=== PATIENT | female | born 1985 | race Hispanic/Latino ===

== ENCOUNTER 2016-06-10 22:46 | Emergency (ER) | payer MEDICAID, OTHER ==
[2016-06-10] MEDS ORDERED: Adacel (T-DAP) 0.5 ML VIAL ONE (23:08)
--- NOTE | 2016-06-10 23:25 | ERRECORD ---
[facility] EMERGENCY RECORD HPI LACERATION (23:14 JLOY) CHIEF COMPLAINT: Patient presents for evaluation of laceration to finger, on the right, 0-1.5cm in length, through dermis, No foreign body, Not grossly contaminated, Pt accidently sliced the tip of her right middle digit with a new knife as she took it out of the package. Shallow but bled heavily at first. HISTORIAN: History provided by patient. MECHANISM OF INJURY: Known mechanism, Mechanism of injury: Cut or punctured by, knife. LOCATION: Symptoms are localized. QUALITY: Laceration quality straight. TIME COURSE: Sudden onset of symptoms, There has been no change in the patient's symptoms over time. ASSOCIATED WITH: Associated with bleeding, controlled, No associated numbness, No associated significant tissue destruction, No associated tingling. EXACERBATED BY: Patient's condition exacerbated by nothing. RELIEVED BY: Patient's condition relieved by nothing. TETANUS: Tetanus status not up to date, tetanus immunization ordered. ROS (23:15 JLOY) MUSCULOSKELETAL: Historian denies deformity, denies injury. SKIN: laceration. NEUROLOGIC: Historian denies paralysis, denies paresthesias, denies sensory changes. PAST MEDICAL HISTORY MEDICAL HISTORY: No past medical history, Flu vaccine up to date, Tetanus not up to date, Pneumococcal vaccine not up to date. (22:59 KASA) No past medical history, Flu vaccine up to date, Tetanus immunization up to date, Date of immunization: 06/10/2016, Pneumococcal vaccine not up to date. (23:15 KASA) FEMALE SURGICAL HISTORY: Surgical history of hernia repair. (22:59 KASA) SOCIAL HISTORY: Lives at home, with family, Patient denies alcohol use, Patient denies drug use, Patient has no smoking history. (22:59 KASA) NOTES: Nursing records reviewed, Agree with nursing records. (23:16 JLOY) KNOWN ALLERGIES No Known Drug Allergies CURRENT MEDICATIONS (22:56 KASA) None VITAL SIGNS (22:55 KASA) VITAL SIGNS: BP: 139/69, Pulse: 72, Resp: 18, Temp: 98.1 (Oral), Pain: 5 (Constant), O2 sat: 99 on Room Air, Time: 06/10/2016 22:55. &a-1R&a+25V*p+0X*[id number]*c202B*c15G*c2P*p-0X&a-25V&a+1R Name: Noreen Vizcaino : 1985 F30 MedRec: [id number] AcctNum: [id number] Prepared: FriJun 10, 2016 23:35 by Interface Page 1 of 2 pMD [facility] EMERGENCY RECORD PHYSICAL EXAM (23:15 JL) CONSTITUTIONAL: Vital signs reviewed, Patient appears non toxic, Patient alert and oriented to person, place and time. UPPER EXTREMITY: Upper extremity exam included findings of inspection abnormal, laceration(s) present, As per hpi, 1cm lac, just through the dermis, minimal gaping. No active bleeding currently. NEURO: Kailee coma scale 15, Neuro exam findings include patient oriented to person, place and time, Speech normal. SKIN: Skin exam included findings of skin warm, dry, and normal in color. PSYCHIATRIC: Normal affect. MEDICATION ADMINISTRATION SUMMARY Drug Name: Adacel(Tdap Adolesn/Adult)(PF), Dose Ordered: 0.5 mL, Route: Intramuscular, Status: Given, Time: 23:14 06/10/2016, Detailed record available in Medication Service section. PROBLEM LIST No recorded problems DIAGNOSIS (23:13 ANEUYD) FINAL: PRIMARY: RIGHT middle finger laceration without nail involvement, no foreign body. PRESCRIPTION No recorded prescriptions DISPOSITION PATIENT: Disposition Type: Discharge, Disposition: *Discharge Home. (23:13 ANEUDY) Patient left the department. (23:31 LUCAS) Noriega: ANEUDY=MD Jason, Gurdeep ZAVALA=CANDIDA Martínez, Nathalie &a-1R&a+25V*p+0X*m3439P*c202B*c15G*c2P*p-0X&a-25V&a+1R Name: Noreen Vizcaino : 1985 F30 MedRec: [id number] AcctNum: [id number] Prepared: FriJun 10, 2016 23:35 by Interface Page 2 of 2 pMD MTDD
--- NOTE | 2016-06-10 23:31 | PICIS ---
[facility] EMERGENCY RECORD TRIAGE (22:56 KASA) TRIAGE NOTES: Cut 3rd finger on right hand with knife. (22:56 KASA) PATIENT: AGE: 30, GENDER: female, : Fri1985, TIME OF GREET: FriJun 10, 2016 22:47, PREFERRED LANGUAGE: Liberian, ETHNICITY: or , ECODE BILLING MAP: [facility] ER, SSN: [id number], Zip Code: [address], KG WEIGHT: 74.84, PHONE: , , , PERSON ID: [id number], PCP: Rd SCHMITZ JAIME. (22:56 KASA) (22:57) NAME: Noreen Vizcaino. (22:59 KASA) NAME: Noreen Vizcaino. (22:59 KASA) COMPLAINT: RT HAND,MIDDLE FINGER,CUT,USING NEW KNIFE. (22:56 KASA) ADMISSION: URGENCY: 4 Non Urgent, ADMISSION SOURCE: Home, TRANSPORT: CAR, BED: ER -03. (22:56 KASA) ASSESSMENT: Assessment: laceration to tip of finger, Symptoms began 06/10/2016. (22:59 KASA) PAIN: Patient complains of pain described as, throbbing, on a scale 0-10 patient rates pain as 5, Location finger, No aggravating factors, Relieving factors present, Relieving factors include Pressure eases the pain but does not completely relieve the pain. (22:59 KASA) SIRS SCORING: Heart Rate 55-109 (0), Temp range 96.8-101.1 (0), respiratory rate 12-24 (0), Mental Status altered: no (0). (22:59 KASA) TRIAGE SCREENING: Patient denies suicidal ideation, Patient denies presence of domestic violence. (22:59 KASA) PROVIDERS: TRIAGE NURSE: Nathalie Martínez RN. (22:56 KASA) VITAL SIGNS: BP 139/69, Pulse 72, Resp 18, Temp 98.1, (Oral), Pain 5, (Constant), O2 Sat 99, on Room Air, Time 06/10/2016 22:55. (22:55 KASA) PREVIOUS VISIT ALLERGIES: No Known Drug Allergies. (22:56 KASA) No Known Drug Allergies. (22:59 KASA) KNOWN ALLERGIES No Known Drug Allergies CURRENT MEDICATIONS (22:56 KASA) None VITAL SIGNS (22:55 KASA) VITAL SIGNS: BP: 139/69, Pulse: 72, Resp: 18, Temp: 98.1 (Oral), Pain: 5 (Constant), O2 sat: 99 on Room Air, Time: 06/10/2016 22:55. NURSING ASSESSMENT: EXTREMITY UPPER (23:02 KASA) CONSTITUTIONAL: Patient arrives ambulatory, Gait steady, History obtained from patient, Patient appears, uncomfortable, Patient cooperative, Patient alert, Oriented to person, place and &a-1R&a+25V*p+0X*c2255G*c202B*c15G*c2P*p-0X&a-25V&a+1R Name: Noreen Vizcaino : 1985 F30 MedRec: [id number] AcctNum: [id number] Prepared: FriJun 10, 2016 23:41 by Interface Page 1 of 5 pMD [facility] EMERGENCY RECORD time, Skin warm, Skin dry, Skin normal in color, Mucous membranes pink, Mucous membranes moist, Patient complains of Laceration to tip of right 3rd finger, Cut 3rd finger on right hand with knife. LEFT UPPER EXTREMITY: Left upper extremity assessment findings include capillary refill less than 2 seconds, Skin color normal to hand, Skin temperature to hand warm, Distal sensation intact. RIGHT UPPER EXTREMITY: Right upper extremity assessment findings include capillary refill less than 2 seconds, Skin color normal to hand, Skin temperature to hand warm, Distal sensation intact, Inspection findings include laceration, to tip of 3rd finger, length (cm) 2.3, bleeding controlled. SAFETY: Side rails up, Cart/Stretcher in lowest position, Family at bedside, Call light within reach, Hospital ID band on. NURSING PROCEDURE: DISCHARGE NOTE (23:24 KASA) DISCHARGE: Patient discharged to home, ambulating without assistance, family driving, accompanied by //partner, Summary of Care printed/ provided, Discharge instructions given to patient, Simple or moderate discharge teaching performed, . Educated and provided handout regarding diagnosis of: Finger laceration Follow up with PCP in 7-10 days., Above person(s) verbalized understanding of discharge instructions and follow-up care, Patient treated and evaluated by physician, Notes: Patient holding for follow up after Tetanus vaccination. BELONGINGS: Belongings and valuables with patient upon arrival to the Emergency Department include:, Belongings and valuables with patient at time of discharge include:, Belongings remain with patient, Valuables remain with patient. SAFETY: Side rails up, Cart/Stretcher in lowest position, Family at bedside, Call light within reach, Hospital ID band on. NURSING PROCEDURE: NURSE NOTES (23:04 KASA) NURSES NOTES: Patient examined by physician. NURSING PROCEDURE: WOUND CARE (23:05 KASA) PATIENT IDENTIFIER: Patient actively involved in identification process, Patient's identity verified by patient stating name, Patient's identity verified by patient stating date. WOUND CARE: Wound care indicated for preparing wound for repair, Wound care indicated to promote healing, Wound irrigated with normal saline, (mL) 30, by ERMD, Wound repaired with skin adhesive, by ERMD, using 2 tubes of skin adhesive, Tetanus status unknown, Notes: Tetanus updated with today's visit. SAFETY: Side rails up, Cart/Stretcher in lowest position, Family at bedside, Call light within reach, Hospital ID band on. MEDICATION ADMINISTRATION SUMMARY &a-1R&a+25V*p+0X*j6576F*c202B*c15G*c2P*p-0X&a-25V&a+1R Name: Noreen Vizcaino : 1985 F30 MedRec: [id number] AcctNum: [id number] Prepared: FriJun 10, 2016 23:41 by Interface Page 2 of 5 pMD [facility] EMERGENCY RECORD Drug Name: Adacel(Tdap Adolesn/Adult)(PF), Dose Ordered: 0.5 mL, Route: Intramuscular, Status: Given, Time: 23:14 06/10/2016, Detailed record available in Medication Service section. MEDICATION SERVICE Adacel(Tdap Adolesn/Adult)(PF): Order: Adacel(Tdap Adolesn/Adult)(PF) (diphth,pertuss(acell),tet vac/preservative free) - Dose: 0.5 mL : Intramuscular Ordered by: Gurdeep Goemz MD Entered by: Gurdeep Gomez MD FriJun 10, 2016 23:12 , Acknowledged by: Nathalie Martínez RN FriJun 10, 2016 23:15 Documented as given by: Nathalie Martínez RN FriJun 10, 2016 23:14 Patient, Medication, Dose, Route and Time verified prior to administration. IM immunization, Amount given: 0.5 ml, Medication administered to left deltoid, Vaccination information sheet given to patient, date of publication: 07/19/2014, name of publication: TDap Vaccine, bi tri operator: [employer], lot number: [id number], expiration: 04/18/2018, Correct patient, time, route, dose and medication confirmed prior to administration, Patient advised of actions and side-effects prior to administration, Allergies confirmed and medications reviewed prior to administration, Patient in position of comfort, Side rails up, Cart in lowest position, Family at bedside. : Follow Up : No signs or symptoms of allergic reaction noted, Site inspection shows, No swelling at administration site, No drainage at administration site, No bleeding at site, No bruising noted at site, Advised not to ambulate without assistance, Patient in position of comfort, Side rails up, Cart in lowest position, Family at bedside. (23:30 KASA) HPI LACERATION (23:14 ANEUDY) CHIEF COMPLAINT: Patient presents for evaluation of laceration to finger, on the right, 0-1.5cm in length, through dermis, No foreign body, Not grossly contaminated, Pt accidently sliced the tip of her right middle digit with a new knife as she took it out of the package. Shallow but bled heavily at first. HISTORIAN: History provided by patient. MECHANISM OF INJURY: Known mechanism, Mechanism of injury: Cut or punctured by, knife. LOCATION: Symptoms are localized. QUALITY: Laceration quality straight. TIME COURSE: Sudden onset of symptoms, There has been no change in the patient's symptoms over time. ASSOCIATED WITH: Associated with bleeding, controlled, No associated numbness, No associated significant tissue destruction, No associated tingling. EXACERBATED BY: Patient's condition exacerbated by nothing. RELIEVED BY: Patient's condition relieved by nothing. TETANUS: Tetanus status not up to date, tetanus immunization ordered. &a-1R&a+25V*p+0X*y5362A*c202B*c15G*c2P*p-0X&a-25V&a+1R Name: Noreen Vizcaino : 1985 F30 MedRec: [id number] AcctNum: [id number] Prepared: FriJun 10, 2016 23:41 by Interface Page 3 of 5 pMD [facility] EMERGENCY RECORD ROS (23:15 JLOY) MUSCULOSKELETAL: Historian denies deformity, denies injury. SKIN: laceration. NEUROLOGIC: Historian denies paralysis, denies paresthesias, denies sensory changes. PAST MEDICAL HISTORY MEDICAL HISTORY: No past medical history, Flu vaccine up to date, Tetanus not up to date, Pneumococcal vaccine not up to date. (22:59 KASA) No past medical history, Flu vaccine up to date, Tetanus immunization up to date, Date of immunization: 06/10/2016, Pneumococcal vaccine not up to date. (23:15 KASA) FEMALE SURGICAL HISTORY: Surgical history of hernia repair. (22:59 KASA) SOCIAL HISTORY: Lives at home, with family, Patient denies alcohol use, Patient denies drug use, Patient has no smoking history. (22:59 KASA) NOTES: Nursing records reviewed, Agree with nursing records. (23:16 JLOY) PHYSICAL EXAM (23:15 JLOY) CONSTITUTIONAL: Vital signs reviewed, Patient appears non toxic, Patient alert and oriented to person, place and time. UPPER EXTREMITY: Upper extremity exam included findings of inspection abnormal, laceration(s) present, As per hpi, 1cm lac, just through the dermis, minimal gaping. No active bleeding currently. NEURO: Kailee coma scale 15, Neuro exam findings include patient oriented to person, place and time, Speech normal. SKIN: Skin exam included findings of skin warm, dry, and normal in color. PSYCHIATRIC: Normal affect. EVENTS TRANSFER: Triage to Emergency Emergency Room -03. (FriJun 10, 2016 22:56 KASA) Removed from Emergency Emergency Room -03. (23:31 KASA) LACERATION-SINGLE REPAIR (23:16 JLOY) TIMEOUT: Side and/or site verified, Patient identification confirmed, Sterile procedures observed. LACERATION REPAIR: Verbal consent obtained, Wound irrigated with normal saline, Laceration repair with skin adhesive, to finger, total length 1.0 cm, After procedure, wound well approximated, No complications, Tetanus status not up to date, tetanus immunization ordered, Patient tolerated the procedure well. PROBLEM LIST No recorded problems &a-1R&a+25V*p+0X*y6288X*c202B*c15G*c2P*p-0X&a-25V&a+1R Name: Noreen Vizcaino : 1985 1 MedRec: [id number] AcctNum: [id number] Prepared: FriJun 10, 2016 23:41 by Interface Page 4 of 5 pMD [facility] EMERGENCY RECORD DIAGNOSIS (23:13 ANEUDY) FINAL: PRIMARY: RIGHT middle finger laceration without nail involvement, no foreign body. DISPOSITION PATIENT: Disposition Type: Discharge, Disposition: *Discharge Home. (23:13 ANEUDY) Patient left the department. (23:31 LUCAS) INSTRUCTION (23:14 ANEUDY) DISCHARGE: DERMABOND EXTREMITY LACERATION. FOLLOWUP: Rd SCHMITZ, [facility], [address] [place] [id number], [phone], Follow up with Primary Care Physician in 7-10 days. PRESCRIPTION No recorded prescriptions IMAGING TETANUS CONSENT: Image captured from scanner. (23:17 LUCAS) *SUPPLY CHARGE SHEET: Image captured from scanner. (23:18 LUCAS) *DISCHARGE INSTRUCTIONS RECEIPT: Image captured from scanner. (23:25 LUCAS) ADMIN (23:17 ANEUDY) DIGITAL SIGNATURE: MD Jason, Gurdeep. Noriega: ANEUDY=MD Jason, Gurdeep ZAVALA=CANDIDA Martínez, Nathalie &a-1R&a+25V*p+0X*g3998H*c202B*c15G*c2P*p-0X&a-25V&a+1R Name: Noreen Vizcaino : 1985 F30 MedRec: [id number] AcctNum: [id number] Prepared: FriJun 10, 2016 23:41 by Interface Page 5 of 5 pMD MTDD
== END 2016-06-10 23:24 | disposition home or self-care (01) ==
LOC: NAV ERS 22:46
DX: S61.212A Laceration without foreign body of right middle finger without damage to nail, initial encounter (principal); W26.0XXA Contact with knife, initial encounter
CPT/HCPCS: 12001; 90471; 90715

== ENCOUNTER 2017-03-01 19:56 | Emergency (ER) | payer BC ==
[2017-03-01] MEDS ORDERED: Acetaminophen 500 MG TAB ONE (20:18)
[2017-03-01] MEDS ORDERED: Ibuprofen 200 MG TAB ONE (20:18)
--- NOTE | 2017-03-01 21:03 | RAD ---
PA AND LATERAL VIEWS OF THE CHEST 03/01/17 HISTORY: Cough, congestion. FINDINGS: Comparison made with exam of 04/22/15. The cardiac silhouette and mediastinum is normal. The lungs are expanded and clear. The bony thorax is normal. IMPRESSION: Normal exam. POS: [facility]
[2017-03-01] MEDS ORDERED: Benzonatate 100 MG CAP ONE (21:14)
[2017-03-01] MEDS ORDERED: Amoxicillin/Potassium Clav 875 MG TAB ONE (21:14)
== END 2017-03-01 21:29 | disposition home or self-care (01) ==
LOC: NAV ERS 19:56
DX: J32.9 Chronic sinusitis, unspecified (principal)
CPT/HCPCS: 71020

== ENCOUNTER 2020-03-01 18:37 | Emergency (ER) | payer BC, SELFPAY ==
[2020-03-01] MEDS ORDERED: Ondansetron PF 4 MG/2 ML Vial ONE (18:59)
[2020-03-01] MEDS ORDERED: Morphine 4 MG/ML VIAL ONE (18:59)
[2020-03-01 19:14] LABS: ALT (SGPT) 21 U/L (8-55); AST (SGOT) 28 U/L (5-34); Albumin 4.2 g/dL (3.5-5.0); Alkaline Phosphatase 87 U/L (40-110); Anion Gap 15 mmol/L (10-20); BUN (Urea Nitrogen) 10 mg/dL (7.0-18.7); Bilirubin, Total 0.3 mg/dL (0.2-1.2); Calc. Creatinine Clearance 0 mL/min (70-130); Calcium 8.5 mg/dL (7.8-10.44); Carbon Dioxide 26 mmol/L (22-29); Chloride 104 mmol/L (98-107); Estimated GFR-MDRD 84; Globulin 3.1 g/dL (2.4-3.5); Glucose 105 mg/dL (70-105); Lipase 37 U/L (8-78); Potassium 3.8 mmol/L (3.5-5.1); Protein, Total 7.3 g/dL (6.0-8.3); Sodium 141 mmol/L (136-145)
[2020-03-01 19:23] LABS: #Basophils 0.1 thou/uL (0.0-0.2); #Eosinphils 0.3 thou/uL (0.0-0.7); #Lymphocytes 2.2 thou/uL (1.20-3.40); #Monocytes 0.6 thou/uL (0.11-0.59); #Neutrophils 6.8 thou/uL (1.40-6.50); %Basophils 0.7 % (0.0-1.0); %Eosinophils 3.1 % (0.0-10.0); %Lymphocytes 21.9 % (21.0-51.0); %Neutrophils 68.4 % (42.0-75.0); Hemoglobin 8.3 g/dL (12.0-16.0); Mean Corpuscular HGB CONC 27.4 g/dL (32.0-36.0); Mean Corpuscular Volume 65.9 fL (78.0-98.0); Mean Platelet Volume 7.5 fL (7.4-10.4); Platelet Count 343 thou/uL (130-400); RBC Distribution Width 15.8 % (11.5-14.5); White Blood Cell (WBC) Count 9.9 thou/uL (4.8-10.8)
[2020-03-01 19:34] LABS: BHCG - Serum Negative (NEGATIVE); Pregs Control Bar Appear? YES (CONTROL BAR)
[2020-03-01 19:55] LABS: Eosinophils 2 % (0-10); Lymphocytes 19 % (21-51); MDiff Complete? YES; Monocytes 3 % (0-10); Neutrophil 76 % (42-75); RBC Morphology Normal
== END 2020-03-01 20:31 | disposition short-term general hospital (02) ==
LOC: NAV ERS 18:37
DX: R10.11 Right upper quadrant pain (principal); D50.9 Iron deficiency anemia, unspecified
CPT/HCPCS: 80053; 83690; 84484; 84703; 85025; 93005; 94760; 96374; 96375; J2270; J2405

== ENCOUNTER 2020-04-02 05:49 | Emergency (ER) | payer BC ==
[2020-04-02 06:34] LABS: Anisocytosis MODERATE=16-30 cells (100X) (0-5/hpf); Eosinophils 2 % (0-10); Hemoglobin 7.1 g/dL (12.0-16.0); Hypochromia MODERATE=16-30 cells (100X) (0-5/hpf); Lymphocytes 36 % (21-51); MDiff Complete? YES; Mean Corpuscular Hemoglobin 23.1 pg (27.0-31.0); Mean Corpuscular Volume 77.2 fL (78.0-98.0); Microcytosis MODERATE=15-30 cells (100X) (0-5/hpf); Monocytes 4 % (0-10); Neutrophil 58 % (42-75); Ovalocytes SLIGHT = 2-5 cells (100X) (0-1/hpf); Platelet Count 211 thou/uL (130-400); Platelet Morphology Comment Appears Adequate; Poikilocytosis MODERATE=16-30 cells (100X) (0-5/hpf); RBC Distribution Width 24.6 % (11.5-14.5); Red Blood Cell (RBC) Count 3.06 mill/uL (4.20-5.40); Target Cells SLIGHT = 2-5 cells (100X) (0-1/hpf); Tear Drops SLIGHT = 2-5 cells (100X) (0-1/hpf); White Blood Cell (WBC) Count 8.3 thou/uL (4.8-10.8)
[2020-04-02] MEDS ORDERED: Metoprolol Tartrate 50 MG TAB ONE (06:34)
[2020-04-02 06:36] LABS: ALT (SGPT) 39 U/L (8-55); AST (SGOT) 15 U/L (5-34); Albumin 3.6 g/dL (3.5-5.0); Alkaline Phosphatase 64 U/L (40-110); Anion Gap 12 mmol/L (10-20); BUN (Urea Nitrogen) 8 mg/dL (7.0-18.7); Bilirubin, Total 0.3 mg/dL (0.2-1.2); Calc. Creatinine Clearance 0 mL/min (70-130); Carbon Dioxide 27 mmol/L (22-29); Chloride 103 mmol/L (98-107); Estimated GFR-MDRD Greater than 90; Globulin 2.8 g/dL (2.4-3.5); Glucose 106 mg/dL (70-105); Potassium 3.5 mmol/L (3.5-5.1); Protein, Total 6.4 g/dL (6.0-8.3); Sodium 138 mmol/L (136-145)
[2020-04-02 07:08] LABS: Bilirubin Negative (Negative); Blood, Urine Negative (Negative); Clarity Clear (Clear); Glucose, Urine (Dipstick) Negative (Negative); Ketone, Urine Trace mg/dL (Negative); Leukocyte Negative (Negative); Nitrite Negative (Negative); Protein, Urine (Dipstick) Negative (Neg-Trace); Specific Gravity, Urine 1.015 (1.005-1.030)
[2020-04-02 07:16] LABS: Amphetamine Not Detected (NotDetected); Barbiturates Screen Not Detected (NotDetected); Benzodiazepine Screen Not Detected (NotDetected); Cocaine Metabolite Screen Not Detected (NotDetected); Medtox Control Line Valid? VALID (VALID); Methadone Not Detected (NotDetected); Methamphetamine Not Detected (NotDetected); Opiate Screen Detected (NotDetected); Oxycodone Screen Not Detected (NotDetected); Phencyclidine (PCP) Not Detected (NotDetected); THC/Cannabinoid Screen Not Detected (NotDetected); Tricyclic Screen Not Detected (NotDetected)
--- NOTE | 2020-04-02 08:17 | RAD ---
RADIOGRAPH CHEST 1 VIEW: DATE: 04/02/2020 TIME: 6:33 AM HISTORY: 34-year-old female with chest pain and tachycardia COMPARISON: 03/01/2017 FINDINGS: New finding of streaky reticular densities at left lung base. Rest of the lungs are clear. No pneumot horax. IMPRESSION: New pulmonary opacities at left lower lung zone. Favor atelectasis, but aspiration or pneumonia are p ossibilities. Recommend follow-up.
== END 2020-04-02 07:38 | disposition home or self-care (01) ==
LOC: NAV ERS 05:49
DX: R00.2 Palpitations (principal); D50.9 Iron deficiency anemia, unspecified; Z79.899 Other long term (current) drug therapy
CPT/HCPCS: 36415; 71045; 80053; 80306; 81003; 84443; 84484; 85025; 93005

== ENCOUNTER 2020-04-20 20:39 | Emergency (ER) | payer BC ==
[~2020-04-20 20:39] MED LIST: Iopamidol 370 76% 100 ML VIAL ONE
[2020-04-20 21:32] LABS: Bilirubin Negative (Negative); Blood, Urine Negative (Negative); Clarity Clear (Clear); Glucose, Urine (Dipstick) Negative (Negative); Ketone, Urine Negative (Negative); Leukocyte Negative (Negative); Nitrite Negative (Negative); Protein, Urine (Dipstick) Negative (Neg-Trace); Specific Gravity, Urine 1.015 (1.005-1.030); pH, Urine 8.5 (5.0-9.0)
[2020-04-20 21:45] LABS: Hemoglobin 10.5 g/dL (12.0-16.0); Mean Corpuscular HGB CONC 29.6 g/dL (32.0-36.0); Mean Corpuscular Hemoglobin 24.1 pg (27.0-31.0); Mean Corpuscular Volume 81.5 fL (78.0-98.0); Mean Platelet Volume 8.2 fL (7.4-10.4); Platelet Count 285 thou/uL (130-400); Red Blood Cell (RBC) Count 4.35 mill/uL (4.20-5.40); White Blood Cell (WBC) Count 6.5 thou/uL (4.8-10.8)
[2020-04-20 21:56] LABS: #Basophils 0.1 thou/uL (0.0-0.2); #Eosinphils 0.3 thou/uL (0.0-0.7); #Lymphocytes 1.9 thou/uL (1.20-3.40); #Monocytes 0.4 thou/uL (0.11-0.59); #Neutrophils 3.7 thou/uL (1.40-6.50); %Basophils 0.9 % (0.0-1.0); %Lymphocytes 29.6 % (21.0-51.0); %Monocytes 6.8 % (0.0-10.0); %Neutrophils 57.7 % (42.0-75.0); Anisocytosis SLIGHT = 6-15 cells (100X) (0-5/hpf); MDiff Complete? YES; Platelet Morphology Comment Appears Adequate
[2020-04-20 22:01] LABS: ALT (SGPT) 22 U/L (8-55); AST (SGOT) 19 U/L (5-34); Alkaline Phosphatase 85 U/L (40-110); Anion Gap 14 mmol/L (10-20); BUN (Urea Nitrogen) 14 mg/dL (7.0-18.7); Bilirubin, Total 0.3 mg/dL (0.2-1.2); Calc. Creatinine Clearance 0 mL/min (70-130); Calcium 8.6 mg/dL (7.8-10.44); Carbon Dioxide 24 mmol/L (22-29); Chloride 104 mmol/L (98-107); Estimated GFR-MDRD 79; Globulin 3.1 g/dL (2.4-3.5); Glucose 104 mg/dL (70-105); Potassium 3.8 mmol/L (3.5-5.1); Protein, Total 7.1 g/dL (6.0-8.3); Sodium 138 mmol/L (136-145)
--- NOTE | 2020-04-20 22:55 | CT ---
CT ABDOMEN AND PELVIS WITH IV CONTRAST: Date: 04/20/2020 PROVIDED CLINICAL HISTORY: Abdominal pain. FINDINGS: Comparison with 03/30/2020. The visualized lung bases are free of significant opacity. The liver, spleen, pancreas, kidneys, and adrenal glands demonstrate an unremarkable CT appearance. There is no evidence for bowel obstruction. No localized inflammatory fat stranding involving the per itoneal fat. No free fluid or free air apparent. There is no evidence for appendicitis. The gallbladd er is surgically absent, with an unremarkable appearance to the gallbladder fossa. There is moderate colonic fecal retention suggesting constipation. Nonspecific stranding changes are seen within the subcutaneous adipose layer of the anterior abdominal wall. There is a stable small fa t-containing supraumbilical ventral hernia. The regional vascular structures appear unremarkable. The osseous structures demonstrate no concerning lytic or blastic lesions. IMPRESSION: No evidence for an acute process. POS: [facility]
== END 2020-04-20 23:05 | disposition home or self-care (01) ==
LOC: NAV ERS 20:39
DX: T81.40XA Infection following a procedure, unspecified, initial encounter (principal); D50.9 Iron deficiency anemia, unspecified
CPT/HCPCS: 74177; 80053; 81003; 85025; Q9967

== ENCOUNTER 2025-01-18 23:15 | Emergency (ER) | payer BC ==
[2025-01-18 23:30] LABS: #Basophils 0.0 thou/uL (0.0-0.2); #Eosinophils 0.3 thou/uL (0.0-0.7); #Lymphocytes 2.2 thou/uL (1.20-3.40); #Monocytes 0.5 thou/uL (0.11-0.59); #Neutrophils 5.5 thou/uL (1.40-6.50); %Basophils 0.5 % (0.0-1.0); %Eosinophils 3.7 % (0.0-10.0); %Lymphocytes 26.0 % (21.0-51.0); %Monocytes 5.2 % (0.0-10.0); %Neutrophils 64.5 % (42.0-75.0); Hematocrit 40.6 % (36.0-47.0); Hemoglobin 13.6 g/dL (12.0-16.0); Mean Corpuscular Hemoglobin 28.1 pg (27.0-31.0); Mean Corpuscular Volume 84.1 fl (78.0-98.0); Platelet Count 199 10x3/uL (130-400); Red Blood Cell (RBC) Count 4.83 mill/uL (4.20-5.40); White Blood Cell (WBC) Count 8.5 10x3/uL (4.8-10.8)
[2025-01-18 23:49] LABS: ALT (SGPT) 10 U/L (Less than 34); AST (SGOT) 13 U/L (11-34); Albumin 4.2 g/dL (3.1-4.5); Alkaline Phosphatase 62 U/L (40-110); Anion Gap 13 mmol/L (10-20); BUN (Urea Nitrogen) 11 mg/dL (7.0-18.7); Bilirubin, Total 0.3 mg/dL (0.3-1.2); Calc. Creatinine Clearance 0 mL/min (70-130); Calcium 9.0 mg/dL (7.8-10.44); Carbon Dioxide 23 mmol/L (22-29); Chloride 104 mmol/L (98-107); Globulin 3.1 g/dL (2.4-3.5); Glucose 118 mg/dL (70-105); Potassium 3.4 mmol/L (3.5-5.1); Sodium 137 mmol/L (136-145); Troponin I Less than 0.010 ng/mL (< 0.028)
[2025-01-19 02:50] LABS: Troponin I Less than 0.010 ng/mL (< 0.028)
== END 2025-01-19 03:15 | disposition home or self-care (01) ==
LOC: NAV ERS 23:15
DX: R07.89 Other chest pain (principal)
CPT/HCPCS: 71045; 80053; 84484; 85025; 93005; 94760

== ENCOUNTER 2025-05-22 16:29 | Emergency (ER) | payer BC ==
[2025-05-22 19:16] LABS: Hematocrit 37.7 % (36.0-47.0); Hemoglobin 13.1 g/dL (12.0-16.0); Mean Corpuscular Hemoglobin 28.5 pg (27.0-31.0); Mean Corpuscular Volume 82.1 fl (78.0-98.0); Platelet Count 225 10x3/uL (130-400); Red Blood Cell (RBC) Count 4.59 mill/uL (4.20-5.40); White Blood Cell (WBC) Count 7.9 10x3/uL (4.8-10.8)
[2025-05-22 19:19] LABS: Platelet Adequacy Comment Appears Adequate
[2025-05-22 19:22] LABS: ALT (SGPT) 25 U/L (Less than 34); AST (SGOT) 18 U/L (11-34); Albumin 4.0 g/dL (3.1-4.5); Alkaline Phosphatase 62 U/L (40-110); Anion Gap 13 mmol/L (10-20); BUN (Urea Nitrogen) 13 mg/dL (7.0-18.7); Bilirubin, Total 0.2 mg/dL (0.3-1.2); Calc. Creatinine Clearance 0 mL/min (70-130); Calcium 8.9 mg/dL (7.8-10.44); Carbon Dioxide 25 mmol/L (22-29); Chloride 106 mmol/L (98-107); Globulin 2.8 g/dL (2.4-3.5); Glucose 110 mg/dL (70-105); Potassium 4.1 mmol/L (3.5-5.1); Sodium 140 mmol/L (136-145)
[2025-05-22 19:24] LABS: Troponin I Less than 0.010 ng/mL (< 0.028)
== END 2025-05-22 20:15 | disposition home or self-care (01) ==
LOC: NAV ERS 16:29
DX: R07.9 Chest pain, unspecified (principal); R00.2 Palpitations
CPT/HCPCS: 80053; 84484; 85025; 99285